=== PATIENT | male | born 2000 | race Caucasian/White ===

== ENCOUNTER 2021-02-09 10:51 | Emergency (ER) | payer OTHER ==
[2021-02-09 11:33] LABS: Bilirubin Neg (Negative); Blood, Urine Negative (Negative); Clarity Clear (Clear); Glucose, Urine (Dipstick) Normal (Negative); Ketone, Urine Negative (Negative); Leukocyte Negative (Negative); Nitrite Negative (Negative); Protein, Urine (Dipstick) Negative (Neg-Trace); Urobilinogen Normal mg/dL (Less than 2)
[2021-02-09] MEDS ORDERED: cefTRIAXone\\ROCEPHIN 500 MG VIAL ONE (12:48)
[2021-02-09] MEDS ORDERED: Lidocaine 1% PF 5 ML VIAL ONE (12:48)
== END 2021-02-09 13:10 | disposition home or self-care (01) ==
LOC: CSHERS 10:51
DX: N50.811 Right testicular pain (principal)
CPT/HCPCS: 76870; 81003; 93976; 96372; J0696